=== PATIENT | female | born 1970 | race Caucasian/White ===

== ENCOUNTER → 2017-09-19 | Outpatient (CLI) | payer OTHER ==
[~2017-09-19] MED LIST: GADOBENATE DIMEGLUMINE 1 ML IV ONE
--- NOTE | 2017-09-19 20:01 | Diagnostic Imaging Report ---
PROCEDURE: MRI ABDOMEN MRCP WITH AND WITHOUT CONTRAST TECHNIQUE: Axial T1 in and out of phase, axial T2, fat-sat, coronal, T2 with and without fat-sat, axial DWI, and ADC MR images of the abdomen were performed before the intravenous administration of 20 cc of gadolinium. Axial T1, GRE dynamic images in precontrast, arterial, venous and delayed phases were performed, as well as delayed axial postcontrast ASSETT. Subtraction images were performed. Heavily T2-weighted MRCP images were also obtained, including thick and thin slab MRCP ASSETT, 3-D breath-hold FRFSE, and 3-D reconstructions. COMPARISON: None. INDICATIONS: Abdominal pain, acute pancreatitis. FINDINGS: Exam limited by breathing motion artifact. The LOWER THORAX: Lung bases are grossly clear. LIVER: Normal hepatic size and contour. Mild signal dropout on out of phase images, consistent with mild steatosis. No focal enhancing hepatic lesions. BILIARY: No intrahepatic biliary ductal dilation. The common bile duct is in the upper limit of normal, measuring 6-7 mm at the scott hepatis. A fluid level is noted in the common bile duct at the scott hepatis below the bifurcation (for example series 13, image 22 and series 5, image 16), which likely represents pneumobilia. No intraluminal filling defects or strictures. Gallbladder is unremarkable without stones, sludge, wall thickening, or pericholecystic fluid. PANCREAS: Pancreatic contour is indistinct. Portions of the pancreatic body and tail show no enhancement on postcontrast images (for example series 9, image 122), with surrounding increased T2 hyperintensity, likely representing fluid. The visualized portions of the pancreatic duct in the head, neck, and proximal body show no dilation. SPLEEN: Mild splenomegaly, measuring 14.9 cm in length. ADRENALS: No nodules. KIDNEYS: No hydronephrosis or mass in the imaged portion of the kidneys. GI TRACT: Visualized bowel shows no dilation or obstruction. PERITONEUM / RETROPERITONEUM: No ascites. LYMPH NODES: No upper abdominal lymphadenopathy. VESSELS: The celiac trunk, superior and inferior mesenteric, and bilateral renal arteries are patent. Portal and superior mesenteric veins are patent. The splenic vein is not clearly visualized in its entirety. BONES AND SOFT TISSUES: No abnormal bone marrow signal. IMPRESSION: 1. No intrahepatic biliary ductal dilation. Common bile duct is at the upper limit of normal. No MR evidence of choledocholithiasis or cholelithiasis. Likely mild pneumobilia 2. Findings highly suggestive of necrotizing pancreatitis. The splenic vein is not clearly visualized in its entirety and there is mild splenomegaly, which may be secondary to thrombosed splenic vein. Recommend CT abdomen for further evaluation. 3. Mild hepatic steatosis. Jose A Anglin M.D. Dictated by: Jos eA Anglin M.D. on 09/19/2017 at 20:03 Electronically approved by: Jose A Anglin M.D. on 09/19/2017 at 20:03
== END ==
LOC: MRI 09:43
PROVIDERS: ATTEND Internal Medicine Gastroenterology
DX: R10.9 Unspecified abdominal pain (principal); K86.89 Other specified diseases of pancreas; K76.0 Fatty (change of) liver, not elsewhere classified; R16.1 Splenomegaly, not elsewhere classified
CPT/HCPCS: 74183

== ENCOUNTER 2018-06-18 14:45 | Observation (INO) | payer OTHER ==
[~2018-06-18] VITALS: Ht 162.6 cm; Wt 91.3 kg
--- OUTSIDE RECORDS SUMMARY | 2018-06-18 14:48 | XMS REPORT ---
Author Author [facility] Address Unknown Phone Unavailable Care Team Providers Care User Interface Engineer Name Role Phone JUVENTINO VELAZQUEZ Unavailable Unavailable Problems This patient has no known problems. Allergies, Adverse Reactions, Alerts This patient has no known allergies or adverse reactions. Medications This patient has no known medications. Results Test Description Test Time Test Comments Text Results Atomic Results Result Comments MRI MRCP [facility] 2017-09-19 20:05:00 [place] [address] Patient Name: MARY DAWSON MR #: [id number] : 1970 Age/Sex: 47/F Req #: [id number] Adm Physician: Ordered by: JUVENTINO VELAZQUEZ MD Report #: [id number] Location: MRI Room/Bed: Procedure: [id number] MRI/MRI MRCP [facility] Exam Date: Exam Time: REPORT STATUS: Signed PROCEDURE: MRI ABDOMEN MRCP WITH AND WITHOUT CONTRAST TECHNIQUE: Axial T1 in and out of phase, axial T2, fat-sat, coronal, T2 with and without fat-sat, axial DWI, and ADC MR images of the abdomen were performed before the intravenous administration of 20 cc of gadolinium. Axial T1, GRE dynamic images in precontrast, arterial, venous and delayed phases were performed, as well as delayed axial postcontrast ASSETT. Subtraction images were performed. Heavily T2-weighted MRCP images were also obtained, including thick and thin slab MRCP ASSETT, 3-D breath-hold FRFSE, and 3-D reconstructions. COMPARISON: None. INDICATIONS: Abdominal pain, acute pancreatitis. FINDINGS: Exam limited by breathing motion artifact. The LOWER THORAX: Lung bases are grossly clear. LIVER: Normal hepatic size and contour. Mild signal dropout on out of phase images, consistent with mild steatosis. No focal enhancing hepatic lesions. BILIARY: No intrahepatic biliary ductal dilation. The common bile duct is in the upper limit of normal, measuring 6-7 mm at the scott hepatis. A fluid level is noted in the common bile duct at the scott hepatis below the bifurcation (for example series 13, image 22 and series 5, image 16), which likely represents pneumobilia. No intraluminal filling defects or strictures. Gallbladder is unremarkable without stones, sludge, wall thickening, or pericholecystic fluid. PANCREAS: Pancreatic contour is indistinct. Portions of the pancreatic body and tail show no enhancement on postcontrast images (for example series 9, image 122), with surrounding increased T2 hyperintensity, likely representing fluid. The visualized portions of the pancreatic duct in the head, neck, and proximal body show no dilation. SPLEEN: Mild splenomegaly, measuring 14.9 cm in length. ADRENALS: No nodules. KIDNEYS: No hydronephrosis or mass in the imaged portion of the kidneys. GI TRACT: Visualized bowel shows no dilation or obstruction. PERITONEUM / RETROPERITONEUM: No ascites. LYMPH NODES: No upper abdominal lymphadenopathy. VESSELS: The celiac trunk, superior and inferior mesenteric, and bilateral renal arteries are patent. Portal and superior mesenteric veins are patent. The splenic vein is not clearly visualized in its entirety. BONES AND SOFT TISSUES: No abnormal bone marrow signal. IMPRESSION: 1. No intrahepatic biliary ductal dilation. Common bile duct is at the upper limit of normal. No MR evidence of choledocholithiasis or cholelithiasis. Likely mild pneumobilia 2. Findings highly suggestive of necrotizing pancreatitis. The splenic vein is not clearly visualized in its entirety and there is mild splenomegaly, which may be secondary to thrombosed splenic vein. Recommend CT abdomen for further evaluation. 3. Mild hepatic steatosis. Jb Anglin M.D. Dictated by: Jb Anglin M.D. on 09/19/2017 at 20:03 Electronically approved by: Jb Anglin M.D. on 09/19/2017 at 20:03 Dictated By: JB ANGLIN MD 04 Transcribed By: LISE on 09/19/172004 COPY TO: JUVENTINO VELAZQUEZ MD
[2018-06-18 15:46] LABS: BASOPHILS % 0.4 % (0.0-1.0); EOSINOPHILS # (AUTO) 0.2 (0.0-0.4); EOSINOPHILS % 3.4 % (0.0-6.0); HEMATOCRIT 39.1 % (34.2-44.1); HEMOGLOBIN 12.6 g/dL (12.0-16.0); LYMPHOCYTES # (AUTO) 1.8 (1.0-3.2); LYMPHOCYTES % 30.9 % (18.0-39.1); MEAN CORPUSCULAR HEMOGLOBIN 29.2 pg (28-32); MEAN CORPUSCULAR HGB CONC 32.2 g/dL (31-35); MEAN CORPUSCULAR VOLUME 90.7 fL (81-99); MONOCYTES # (AUTO) 0.5 (0.2-0.8); MONOCYTES % 9.2 % (4.4-11.3); NEUTROPHILS # (AUTO) 3.2 (2.1-6.9); NEUTROPHILS % 55.7 % (38.7-80.0); PLATELET COUNT 213 x10e3/uL (140-360); RED BLOOD COUNT 4.31 x10e6/uL (3.6-5.1); RED CELL DISTRIBUTION WIDTH 13.1 % (11.7-14.4)
[2018-06-18 15:53] LABS: PROTHROMBIN TIME 13.7 seconds (11.9-14.5)
[2018-06-18 15:54] LABS: PARTIAL THROMBOPLASTIN TIME 29.8 seconds (23.8-35.5)
[2018-06-18 16:00] LABS: ALANINE AMINOTRANSFERASE 13 IU/L (0-55); ALBUMIN 3.9 g/dL (3.5-5.0); ALKALINE PHOSPHATASE 78 IU/L (40-150); ANION GAP 10.2 mmol/L (8-16); BLOOD UREA NITROGEN 13 mg/dL (7-26); BUN/CREATININE RATIO 17 (6-25); CALCIUM 9.5 mg/dL (8.4-10.2); CARBON DIOXIDE 26 mmol/L (22-29); CHLORIDE 105 mmol/L (98-107); CREATININE, SERUM 0.76 mg/dL (0.57-1.11); EST GLOMERULAR FILTRATION RATE > 60 ML/MIN (60-); GLUCOSE 103 mg/dL (74-118); POTASSIUM 4.2 mmol/L (3.5-5.1); SODIUM 137 mmol/L (136-145)
--- NOTE | 2018-06-18 16:01 | Diagnostic Imaging Report ---
Examination: CT head without contrast Clinical Indication: Left sided numbness; weakness. Technique: Transaxial noncontrast images from the skull base through the vertex were obtained. Sagittal and coronal reformatted images were done. Dose modulation, iterative reconstruction, and/or weight based adjustment of the mA/kV was utilized to reduce the radiation dose to as low as reasonably achievable. Comparison: None. Findings: Scalp: No abnormalities. Bones: Intact. No fractures. No blastic or lytic lesions. Brain sulci: Appropriate for patient's age. Ventricles: Normal in size and configuration. No hydrocephalus. Extra-axial space: No abnormalities. Parenchyma: No abnormal densities. No masses, hemorrhage, or acute or chronic cortical based vascular insults. Suprasellar region: No abnormalities. Craniocervical junction: The foramen magnum is patent. No Chiari one malformation. Impression: No intracranial abnormality. Signed by: Dr. Morelia Petty M.D. on 06/18/2018 3:57 PM
[2018-06-18] MEDS ORDERED: CARVEDILOL25 MG PO (23:31)
[2018-06-18] MEDS ORDERED: ZOLPIDEM TARTRA10 MG PO (23:31)
[2018-06-18] MEDS ORDERED: ALPRAZOLAM0.5 MG PO (23:31)
[2018-06-18] MEDS ORDERED: HYDROCODON-ACE1 EAC9 PO (23:31)
[2018-06-18] MEDS ORDERED: LISINOPRIL20 MG PO (23:31)
[2018-06-19] VITALS (10 sets, daily range): BP systolic 101–118; BP diastolic 47–66
--- NOTE | 2018-06-19 02:10 | NUR ---
pt received from er via stretcher. no ss of distress noted upon admit. vs bp 101/49, p 64, temp 96.8, resp 18, o2 on ra 97%. x2 max assist to bed pt made comfortable and oriented to rm. pt co pain to lower back. discussed pain mngt poc. verbalized understanding. call kent within reach. spoke to radiology at time, tech made aware of left ac 20g. stated will come pick pt up.
[2018-06-19] MEDS ORDERED: IOPAMIDOL 370 MG/ML 200 ML INFUS..BTL INJ ONE (02:29)
[2018-06-19] MEDS ORDERED: SODIUM CHLORIDE 0.9% 100 ML 100 ML ONE (02:29)
--- NOTE | 2018-06-19 02:30 | NUR ---
pt off unit at time to radiology. no distress noted upon transfer.
--- NOTE | 2018-06-19 02:50 | NUR ---
pt back to unit. pt made comfortable at time. hx obtained at time. call kent within reach.
--- NOTE | 2018-06-19 03:27 | Diagnostic Imaging Report ---
History:Left numbness and weakness, Comparison studies: None Technique: Axial images were obtained from the thoracic inlet. Coronal and sagittal images reconstructed from the axial data. Dose modulation, iterative reconstruction, and/or weight based adjustment of the mA/kV was utilized to reduce the radiation dose to as low as reasonably achievable. Intravenous contrast: 100 cc of Omnipaque 300. Findings: Aortic arch and major vessels: Patent. No abnormalities. Common carotid arteries: Patent. No abnormalities. Carotid bulbs, Non-stenosing punctate atherosclerotic calcification on the right. Otherwise, no abnormalities Internal carotid arteries: Patent. No abnormalities. Vertebral arteries: Patent. No abnormalities. Basilar artery: Patent. No abnormalities. Posterior cerebral arteries: Patent. No abnormalities. Anatomical variants: Acom: Not visualized . Pcoms: Nonvisualized. Vertebral arteries: Left slightly dominant. IMPRESSION: 1. Non-stenosing punctate atherosclerotic calcified plaque at the right carotid bulb. 2. Otherwise, no cervical or intracranial vascular abnormalities. Signed by: Dr. Rafael Juárez M.D. on 06/19/2018 3:23 AM
--- NOTE | 2018-06-19 03:28 | NUR ---
spoke to dr harvey in regards to pain mngt. new orders received.
[2018-06-19] MEDS: HYDROCODONE/APAP 10MG-325MG TAB PO PRN ×5 (03:53→23:54)
--- NOTE | 2018-06-19 04:16 | NUR ---
pt sneezing at time. pt incontinent of urine. unable to obtain ua sample. pt cleaned and diaper applied. call kent within reach.
--- NOTE | 2018-06-19 06:40 | NUR ---
spoke to dr padilla at time regarding new consult. no new orders at time. will notify oncoming nurse.
--- NOTE | 2018-06-19 07:25 | NUR ---
Received patient and walking rounds complete. Patient resting at this time, no signs of distress. Call light in reach, side rails up, wheels locked, bed in lowest position. Will continue to monitor.
[2018-06-19] MEDS: CARVEDILOL 12.5 MG TAB PO SCH ×2 (08:51→17:27)
[2018-06-19] MEDS: LISINOPRIL 20 MG TAB PO SCH ×2 (08:51→17:28)
[2018-06-19] MEDS ORDERED: NON-FORMULARY MEDICATION (Carvedilol 25 MG) PO SCH (09:00)
[2018-06-19] MEDS ORDERED: LISINOPRIL 20 MG TAB PO SCH (09:00)
[2018-06-19] MEDS ORDERED: HYDROCODONE/APAP 10MG-325MG TAB PO SCH (09:00)
[2018-06-19] MEDS: ALPRAZOLAM 0.5 MG TAB PO SCH ×3 (09:01→21:14)
[2018-06-19] MEDS ORDERED: LORATADINE 10 MG TAB PO PRN (09:45)
[2018-06-19] MEDS ORDERED: LORAZEPAM INJ 2 MG/ML VIAL IV ONE (11:45)
--- NOTE | 2018-06-19 12:02 | NUR ---
Patient left for MRI at this time via bed.
--- NOTE | 2018-06-19 12:58 | NUR ---
Patient back from MRI at this time. Bed in lowest position, wheels locked, side rails up x2, call light in reach. Will continue to monitor.
--- NOTE | 2018-06-19 14:04 | Diagnostic Imaging Report ---
Examination: MRI BRAIN WITHOUT CONTRAST History: Weakness. TIA. Comparison studies: Head CT performed earlier today. Technique: Sagittal T2; axial DWI, FLAIR, GRE or SWI, T1, Coronal FLAIR. Intravenous contrast: None Findings: Scalp: No abnormal signal. No masses. Bone marrow: Normal in signal intensity. Brain volume: Adequate for age. No volume loss. Ventricles: Normal in size and configuration. No hydrocephalus. Extra-axial spaces: No abnormalities. Parenchyma: There is an area of signal abnormality in the right middle cerebellar peduncle. There is no associated restricted diffusion or hemorrhage. This finding could be from prior vascular insult. No masses, hemorrhage, or acute vascular insults. Suprasellar and sellar region: No abnormalities. Craniocervical junction: No abnormalities. The foramen magnum is patent. No Chiari malformations. Vessels: Normal flow-voids in the arteries and sinuses. Additional findings:None. IMPRESSION: Presumed prior vascular insults of the right middle cerebellar peduncle. Alternatively, this could represent demyelinating disease in the appropriate clinical context. No acute infarct. Signed by: Dr. Morelia Petty M.D. on 06/19/2018 2:01 PM
--- NOTE | 2018-06-19 19:10 | NUR ---
REPORT TAKEN FROM AM RN.WALKING ROUNDS DONE.
[2018-06-19] MEDS ORDERED: NON-FORMULARY MEDICATION (Zolpidem Tartrate 10 MG) PO SCH (21:00)
[2018-06-19] MEDS: ZOLPIDEM TARTRATE 10 MG TAB PO SCH (21:14)
--- NOTE | 2018-06-19 22:30 | NUR ---
ASSESSMENT DONE.NO RESP.DISTRESS.BACK PAIN VOICED09/07.MEDICATION GIVEN.AMBULATES WITH WALKER.BED LOCKED AND IN LOWEST POSITION.BED ALARM ON.PHONE AND CALL LIGHT WITHIN REACH.INSTRUCTED TO CALL FOR ASISTANCE NEEDED.
[2018-06-19 23:45] LABS: CLARITY,URINE CLEAR (CLEAR); COLOR,URINE YELLOW (YELLOW)
[2018-06-19 23:46] LABS: KETONES,URINE NEGATIVE (NEGATIVE); LEUKOCYTE ESTERASE ,URINE NEGATIVE (NEGATIVE); NITRITE,URINE NEGATIVE (NEGATIVE); PROTEIN,URINE DIPSTICK NEGATIVE (NEGATIVE)
[2018-06-19 23:47] LABS: PHENCYCLIDINE SCREEN,URINE NEGATIVE (NEGATIVE)
[2018-06-19 23:48] LABS: AMPHETAMINES SCREEN,URINE NEGATIVE (NEGATIVE); BENZODIAZEPINES SCREEN,URINE POSITIVE (NEGATIVE); BILIRUBIN,URINE NEGATIVE (NEGATIVE); URINE UROBILINOGEN 0.2 mg/dL (0.2 - 1)
[2018-06-19 23:52] LABS: BACTERIA,URINE PRESENT /HPF; EPITHELIAL CELLS,URINE MODERATE /LPF; RBC,URINE 0-5 /HPF (0-5); WBC,URINE (MAN) 0-5 /HPF (0-5)
[2018-06-20] VITALS (8 sets, daily range): BP systolic 117–132; BP diastolic 53–92
--- NOTE | 2018-06-20 00:16 | NUR ---
URINE SENT TO THE LAB.
--- NOTE | 2018-06-20 00:21 | NUR ---
ORDERED MRI SPINE CERVICAL STAT. SHE SAID THAT IT IS OK TO DO IN THE MORNING.PT IS AWARE OF THAT.
--- NOTE | 2018-06-20 03:31 | Consultation ---
DATE OF CONSULTATION: 06/19/2018 Neurology Consult Note HISTORY OF PRESENT ILLNESS: Ms. Panchal is a 47-year-old right-hand dominant woman with past medical history significant for hypertension and a reported prior stroke with residual dysarthria and left hemiparesis, admitted to the [facility] on June 19, 2018, with worsening left hemiparesis. At approximately 1300 hours on June 18, 2018, the patient awoke from sleep to use the restroom. However, Ms. Panchal reports falling to the ground as soon as she attempted to step from the bed. Ms. Panchal cannot say why she fell to the ground. She does not report a new or worsening visual field cut or other disturbance, aphasia, facial weakness, hemiparesis, hemihypesthesia, or dizziness. She does report mild dysarthria, poor balance and impairment of gait, and confusion. Ms. Panchal was brought to the emergency center at [facility] by her for further evaluation of her symptoms. Upon arrival in the emergency center, the patient was afebrile with a blood pressure of 119/62 mmHg and a pulse of 74 beats per minute. The patient's neurological examination was documented as being nonfocal. A CT of the brain without contrast was performed, while the patient was in the emergency center. This study did not reveal evidence of recent or remote large territorial ischemia or hemorrhage. Ms. Panchal was admitted to [facility] under observation status for further evaluation and treatment of her symptoms. As stated above, Ms. Panchal reports suffering a stroke in May of 2016. Residual deficits from that stroke include dysarthria, left facial droop, and mild left hemiparesis. At home, the patient is not taking anti-platelet or anticoagulant medication. Ms. Panchal reports her symptoms seem to improve after approximately 12 to 14 hours. However, she reports continued need for someone to help her move around her hospital room. REVIEW OF SYSTEMS: Dry cough, confusion, impairment of balance and gait, and chronic low back pain. Otherwise, a 12-point review of systems is negative. PAST MEDICAL HISTORY: Hypertension, anxiety, stroke in June 2016 with residual dysarthria, left facial droop, and left hemiparesis, pancreatitis, ulcerative colitis, and chronic low back pain. PAST SURGICAL HISTORY: Cholecystectomy, tendon transfer in the left hand, and partial hysterectomy. PAST HOSPITALIZATIONS: Surgeries/procedures as listed, childbirth, stroke, and pancreatitis. FAMILY MEDICAL HISTORY: Hypertension, diabetes mellitus, and coronary artery disease. SOCIAL HISTORY: Ms. Panchal is . 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 The patient does not report current or prior tobacco, alcohol, or recreational drug use. HOME MEDICATIONS: Alprazolam 0.5 mg by mouth three times daily, Coreg 25 mg by mouth twice daily, hydrocodone/acetaminophen 1 tablet by mouth every 4 hours as needed for pain, lisinopril 20 mg by mouth twice daily, and Ambien 10 mg by mouth at bedtime daily. HOSPITAL MEDICATIONS: Alprazolam, Coreg, hydrocodone/acetaminophen, lisinopril, loratadine, and Ambien. ALLERGIES: BACTRIM. NO KNOWN FOOD ALLERGIES. NO KNOWN ALLERGIES TO LATEX. MS. PANCHAL DOES REPORT AN ALLERGY TO THE ADHESIVE AND MEDICAL TAPE. NO KNOWN ALLERGIES TO IODINE OR OTHER CONTRAST MATERIALS. PHYSICAL EXAMINATION: VITAL SIGNS: Height 64 inches, weight 189 pounds, BMI 32.5 kg/m2, blood pressure 118/66 mmHg, pulse 63 beats per minute, respiratory rate 18 breaths per minute, and oxygen saturation 96% on room air. GENERAL: The patient is awake and alert, does not appear distressed. Obese. HEENT: Normocephalic and atraumatic. Pupils are equal, round, and reactive to light. Moist mucous membranes. NECK: Supple. No appreciable thyromegaly. No appreciable carotid bruits. CARDIOVASCULAR: S1, S2, regular rate and rhythm. A moderate grade systolic ejection murmur is auscultated. No rubs or gallops. RESPIRATORY: Clear to auscultation bilaterally. No wheezes, rhonchi, or rales. EXTREMITIES: The skin is warm and dry. No clubbing, cyanosis, or edema. The posterior tibial and dorsalis pedis pulses are 2+ and symmetric. SKIN: No rashes or lesions. NEUROLOGIC: Memory/Attention: The patient is awake and alert, oriented to person, place, time, and situation. Cranial Nerves: Cranial nerve I - not tested. Cranial nerves II, III, IV, and - pupils are equal and round, react briskly to light (from 6 mm to 3 mm). Extraocular movements intact. No nystagmus. Cranial nerve V - sensation to light touch and pinprick is intact in the bilateral V1 through V3 distributions. Strength in the temporalis and masseter muscles is within normal limits. Cranial nerve VII - the face is symmetric, as are all facial movements. Strength is within normal limits. Cranial nerve VIII - hearing is intact to finger rub bilaterally. Cranial nerves IX, X - the soft palate elevates equally and symmetrically. Cranial nerve XI - normal strength of the bilateral sternocleidomastoid and trapezius muscles. Cranial nerve XII - the tongue protrudes midline and moves symmetrically from nllo-tn-mbiz. Strength: Bulk is normal. Strength is 5/5 in the right deltoid, biceps, triceps, wrist flexors and extensors, finger flexors and extensors, intrinsic hand muscles, hip flexors, knee flexors and extensors, ankle dorsiflexion and plantarflexion, and intrinsic foot muscles. In the left arm, the flexors are 4+/5 and the extensors are 4/5. The left leg is 1/5. Positive Kaiser sign. Tone is normal. DTRs: Deep tendon reflexes are 2+ at the right triceps, biceps, brachioradialis, and patella. Deep tendon reflexes are 3+ at the left triceps, biceps, brachioradialis, and patella. Deep tendon reflexes are 1+ and symmetric at the Achilles. Plantar responses are flexor bilaterally. Sensation: Sensation is intact to light touch and pinprick in both arms and both legs. Cerebellar: Pndjtn-khba-hgbbfc and heel-quan movements are intact without dysmetria or other impairment on the right. There is dysmetria with nbyqsf-uire-ymowcj movements on the left. Heel-quan movements are impaired on the left, but this is within the bounds of paresis. Gait: Deferred. Speech: Spontaneous speech is mildly dysarthric without aphasia. Repetition is intact. Involuntary Movements: None. Pronator Drift: Positive in the left arm. LABORATORY DATA: A comprehensive metabolic panel is significant only for a mildly elevated globulin of 4.0. The CBC with differential and platelets is unremarkable. The coagulation profile is within normal limits. DIAGNOSTIC STUDIES: CT of the brain on 06/18/2018: On my review, there is no evidence of recent or remote large territorial ischemia, hemorrhage, mass, or mass effect. Cerebral volumes are appropriate for age. There are no findings suggestive of chronic small vessel ischemic disease. MRI of the brain without contrast on 06/19/2018: On my review, there is an area of abnormal signal in the right middle cerebellar peduncle without associated restricted diffusion or hemorrhage. This finding could be from a prior stroke. However, demyelinating or infectious lesions may cause similar appearance. Cerebral volumes are appropriate for age. There are no findings suggestive of chronic small vessel ischemic disease. CTA of the brain and neck on 06/19/2018: Other than a nonstenotic calcified atherosclerotic plaque at the right carotid bulb, there were no significant findings of the intracranial or extracranial vasculature. ASSESSMENT AND PLAN: Ms. Panchal is a 47-year-old right-hand dominant woman with past medical history significant for hypertension as well as a reported prior stroke with residual dysarthria, left facial droop, and left hemiparesis, admitted to [facility] on June 19, 2018, with worsening left hemiparesis. The patient's neurological examination is significant for left hemiparesis, with the leg being more affected than the arm, hyperreflexia over the left arm and left leg, ataxia of the left arm, and impairment of heel-quan maneuvers of the left leg. The patient's laboratory data and other diagnostic studies have been reviewed and are documented above. At the time of the MRI of the brain was completed, the patient's symptoms have been present for nearly 24 hours. However, there is no evidence of acute ischemia or hemorrhage on the magnetic resonance images. Given the patient's history of a reported prior stroke with residual left-sided deficits, I would say the patient's worsening left hemiparesis could represent recrudescence of prior deficits. However, there are no lesions on the MRI of the brain, which correspond to the patient's symptoms. At present, I am suspicious of the prior diagnosis of stroke in a patient with only well-controlled hypertension as a risk factor. The lesion seen on the MRI of the brain may not be ischemic. Demyelinating or infectious lesions may have a similar appearance. The patient does not report symptoms of infectious illness. There are no signs on her examination to suggest infectious illness. Therefore, demyelinating disorder (i.e. multiple sclerosis) seems to be a more likely cause for her symptoms. RECOMMENDATIONS: Are as follows: 1. A CT of the cervical spine with and without contrast will be ordered to evaluate for demyelinating lesions in the cervical spine. Given the distribution of the patient's symptoms and without a corresponding lesion in the brain, the cervical spine is the most likely location for pathology. 2. Defer treatment of the remaining medical comorbidities to the primary and other services following the patient. Thank you for this consultation. I will continue to follow the patient while she remains in the hospital. TIME SPENT: 50 minutes. Tanya Fitzpatrick MD CP/DEMAR /[id number] [email or web address]
[2018-06-20] MEDS: HYDROCODONE/APAP 10MG-325MG TAB PO PRN ×4 (05:19→20:00)
--- NOTE | 2018-06-20 07:01 | NUR ---
REPORT GIVEN TO THE ONCOMING RN.WALKING ROUNDS DONE.STABLE CONDITION.
[2018-06-20] MEDS: CARVEDILOL 12.5 MG TAB PO SCH ×2 (08:20→16:59)
[2018-06-20] MEDS: ALPRAZOLAM 0.5 MG TAB PO SCH ×3 (09:05→20:32)
[2018-06-20] MEDS ORDERED: LORAZEPAM INJ 2 MG/ML VIAL IV ONE (09:15)
[2018-06-20] MEDS ORDERED: GADOBENATE DIMEGLUMINE 1 ML IV ONE (09:25)
--- NOTE | 2018-06-20 10:32 | Diagnostic Imaging Report ---
Examination: MRI SPINE CERVICAL WITHOUT AND WITH CONTRAST History: Weakness. Multiple sclerosis. Comparison studies: None Technique: Sagittal T1, T2 and IR, axial T2 and axial gradient echo; postcontrast axial and sagittal T1 fat-saturated. Intravenous contrast: 17 mL MultiHance. Findings: Alignment: Normal lordosis. No scoliosis. Cervicomedullary junction: No abnormalities. Patent foramen magnum. Soft tissues: No T2 hyperintense inflammatory changes. Spinal cord: Normal in size from the foramen magnum through T1. There is an area of signal abnormality in the left lateral cord from C2 through C3. Evaluation of the remaining cord is limited due to significant motion artifact. Please consider repeat scan with sedation Vertebrae: No fractures, infection or neoplasm. Enhancement: No definite area of abnormal enhancement. However, evaluation is limited due to motion artifact. Degenerative changes: C1-C2 through C7-T1: No canal or foraminal stenosis. IMPRESSION: Significant motion artifact limiting the study. Please consider repeat scanning with conscious sedation. Possible lesions in the left lateral cord from C2 through C3. Additional lesions and enhancing lesions cannot be evaluated due to motion artifact. Signed by: Dr. Morelia Petty M.D. on 06/20/2018 10:29 AM
[2018-06-20] MEDS ORDERED: METHYLPREDNISOLONE SOD SUCC 1,000 MG/8 ML VIAL IV SCH (11:30)
--- NOTE | 2018-06-20 12:00 | NUR ---
MD SALDANA HAS ROUNDED WITH PT IS HAS EXPLAINED RESULTS OF MRI . HAS EXPLAINED TO PT HER WEAKNESS IS DUE TO MS AND TREATMENT INCLUDES IV STEROIDS AT THIS TIME. PT VERBALIZES UNDERSTANDING . STATES SHE WILL COME TOMORROW TO BETTER EXPLAIN HER NEW DIAGNOSIS
[2018-06-20] MEDS: LISINOPRIL 20 MG TAB PO SCH ×2 (12:10→16:59)
--- NOTE | 2018-06-20 12:31 | NUR ---
PT EDUCATION HANDOUT GIVEN TO PT AT THIS TIME .
[2018-06-20] MEDS: METHYLPREDNISOLONE SOD SUCC 1,000 MG in SODIUM CHLORIDE 0.9% 250ML 250 ML IV SCH (12:57)
--- NOTE | 2018-06-20 13:16 | NUR ---
pt has refused 3x today due to receiving bad news, pt asked to be given some time then check on her to participate but did not feel ready... Addendum: 06/20/18 at 1317 by Robert Zamora PTA Amended: Links added.
--- NOTE | 2018-06-20 15:12 | Progress Note ---
DATE: Internal Medicine Progress Note SUBJECTIVE: The patient is complaining of left lower quadrant abdominal pain. She has esophageal reflux disease. PHYSICAL EXAMINATION: VITAL SIGNS: Blood pressure 117/55, temperature 96.2, heart rate 65 per minute, respiratory rate 18 per minute, and oxygen saturation 97%. HEART: Showed regular rhythm. Normal S1 and S2 sounds. LUNGS: Clear bilaterally. ABDOMEN: Soft. EXTREMITIES: Show no evidence of cyanosis, edema, or trauma. NEUROLOGIC: Alert and oriented x3. She has dysarthria. Cranial nerves II through XII intact. Left hemiparesis, more on the arm than the leg. FINAL IMPRESSION: 1. Multiple sclerosis, new episode with left hemiparesis. 2. Hypertension. 3. Chronic pain syndrome. 4. Cocaine abuse due to the fact that she had cocaine in the system on the drug screening. PLAN OF TREATMENT: Continue Solu-Medrol, which was started by Dr. Fitzpatrick, neurologist, 1000 mg IV daily for 3 days. Continue physical and occupational therapy. Continue alprazolam 0.5 mg 3 times a day, [place] 1 tablet q.4 hours as needed, lisinopril 20 mg twice a day, carvedilol 25 mg twice a day, Ambien 10 mg at night p.r.n. for sleep, Claritin 10 mg daily as needed. MD MARY ANN Schofield/DEMAR /[id number]
--- NOTE | 2018-06-20 19:00 | NUR ---
REPORT TAKEN FROM AM RN.WALKING ROUNDS DONE.AAOX3.SITTING QUIETLY IN THE BED.BED LOCKED AND IN LOWEST POSITION.PHONE AND CALL LIGHT WITHIN REACH.INSTRUCTED TO CALL FOR ASSISTANCE NEEDED.
--- NOTE | 2018-06-20 20:30 | NUR ---
PT TOOK SHOWER.BACK PAIN VOICED 09/07.MEDICATION GIVEN.
[2018-06-20] MEDS: ZOLPIDEM TARTRATE 10 MG TAB PO SCH (20:32)
[2018-06-21] VITALS (8 sets, daily range): BP systolic 131–157; BP diastolic 60–78
[2018-06-21] MEDS: HYDROCODONE/APAP 10MG-325MG TAB PO PRN ×6 (00:07→22:50)
--- NOTE | 2018-06-21 06:50 | NUR ---
REPORT GIVEN TO THE ONCOMING RN WALKING ROUNDS DONE.STABLE CONDITION.
[2018-06-21] MEDS: METHYLPREDNISOLONE SOD SUCC 1,000 MG in SODIUM CHLORIDE 0.9% 250ML 250 ML IV SCH (09:23)
[2018-06-21] MEDS: CARVEDILOL 12.5 MG TAB PO SCH ×2 (09:23→17:28)
[2018-06-21] MEDS: ALPRAZOLAM 0.5 MG TAB PO SCH ×3 (09:24→21:12)
[2018-06-21] MEDS: LISINOPRIL 20 MG TAB PO SCH ×2 (09:24→17:28)
[2018-06-21] MEDS: SUMATRIPTAN SUCCINATE 25 MG TAB PO PRN ×2 (12:24→18:15)
--- NOTE | 2018-06-21 12:37 | Progress Note ---
DATE: 06/21/2018 Internal Medicine Progress Note SUBJECTIVE: The patient is complaining of headache that according to the patient the dark room helps her relieve the headaches. OBJECTIVE: VITAL SIGNS: Blood pressure 139/77, temperature 36.0, heart rate 84 per minute, respiratory rate is 18 per minute, and oxygen saturation 93%. HEART: Regular rhythm. No murmur or added sound. LUNGS: Clear bilaterally. ABDOMEN: Soft. EXTREMITIES: No evidence of cyanosis, edema, or trauma. LABORATORY DATA: BMP; sodium 137, potassium 4.2, chloride 105, CO2 of 26, BUN 13, creatinine 0.76, glucose 103. CBC; white blood count 5.66, hemoglobin 12.6, hematocrit 39.1, and platelet count 215,000. PT 13.7, INR 1.00, and PTT 29.8. AST 13, ALT 13, total bilirubin 0.6, and alkaline phosphatase 78. FINAL IMPRESSION: 1. Possible multiple sclerosis with left hemiparesis. 2. Gastroesophageal reflux disease. 3. Hypertension. 4. Chronic pain syndrome. 5. Cocaine abuse. 6. Possible migraine headaches. PLAN OF TREATMENT: We are going to give her Imitrex 25 mg p.o. q.6 hours as needed for severe headache. Continue Solu-Medrol 100 mg IV daily for another three days, Xanax 0.5 mg three times a day, [place] 1 tablet q.4 hours as needed, lisinopril 20 mg twice a day, carvedilol 25 mg twice a day, Ambien 10 mg at bedtime, and Claritin 10 mg daily as needed. MD MARY ANN Schofield/DEMAR /[id number]
--- NOTE | 2018-06-21 14:10 | NUR ---
Visit made by the Spiritual Care Department Pastoral Visitor, Triston Mayo. PV provided pastoral presence, hospitality, and supportive listening. Pastoral Visitor informed pt/family of the scope of Vulnerability Assessment Analyst Services and availability. SAUL SAGASTUME [employer] Spiritual Care Department O: [phone] Pager: [phone] ([phone] number calling from)
[2018-06-21] MEDS ORDERED: DIATRIZOATE MEGL/DIATRIZOA SOD 30 ML BTL PO ONE (14:24)
--- NOTE | 2018-06-21 14:28 | NUR ---
SPOKE TO MD SEN REGARDING PT C/O OF ABD PAIN . PT STATES PAIN IS SIMILAR BEFORE WHEN SHE HAD A PANCREATITIS FLARE UP. MD HAS ORDERED LAB WORK AND CT OF ABD/PELVIS PT AWARE OF MD ORDERS , ASKED PT NOT TO EAT STARTING NOW UNTIL CT IS COMPLETE
--- NOTE | 2018-06-21 17:56 | Diagnostic Imaging Report ---
EXAMINATION: CT of the abdomen and pelvis without contrast. TECHNIQUE: Helical CT images of the abdomen and pelvis were performed from the lung bases to the lesser trochanters. No intravenous contrast was given.. Coronal and sagittal reformatted images were obtained.Dose modulation, iterative reconstruction, and/or weight based adjustment of the mA/kV was utilized to reduce the radiation dose to as low as reasonably achievable. COMPARISON: None. CLINICAL HISTORY:Abdominal pain DISCUSSION: ABSENCE OF INTRAVENOUS CONTRAST DECREASES SENSITIVITY FOR DETECTION OF FOCAL LESIONS AND VASCULAR PATHOLOGY. ABDOMEN/PELVIS: LOWER THORAX: Unremarkable. HEPATOBILIARY:No focal hepatic lesions. No biliary ductal dilation. Cholecystectomy. Pneumobilia. SPLEEN: No splenomegaly. PANCREAS: No focal masses or ductal dilatation. ADRENALS: No adrenal nodules. KIDNEYS/URETERS: No hydronephrosis, stones, or solid mass lesions. PELVIC ORGANS/BLADDER: The bladder is normal. PERITONEUM/RETROPERITONEUM: No free air or fluid. LYMPH NODES: No intra-abdominal,retroperitoneal, pelvic or inguinal lymphadenopathy. VESSELS: The celiac trunk,superior and inferior mesenteric and bilateral renal arteries are patent The portal, superior mesenteric and splenic veins are patent. GI TRACT: No distention or wall thickening. Appendix normal. BONES AND SOFT TISSUES: No bony destructive lesions. No soft tissue abnormalities. IMPRESSION: No acute noncontrast CT finding. Signed by: Dr. Ronn Davis M.D. on 06/21/2018 5:53 PM
--- NOTE | 2018-06-21 19:20 | NUR ---
REPORT TAKEN FROM AM RN.WALKING ROUNDS DONE.AAOX3..NO RESP.DISTRESS.BED LOCKED AND IN LOWEST POSITION.PHONE AND CALL LIGHT WITHIN REACH.INSTRUCTED TO CALL FOR ASSISTANCE NEEDED.
[2018-06-21] MEDS: ZOLPIDEM TARTRATE 10 MG TAB PO SCH (21:12)
[2018-06-22] VITALS (11 sets, daily range): BP systolic 134–169; BP diastolic 61–91
--- NOTE | 2018-06-22 00:20 | NUR ---
PT IS ON NPO FOR MRI UNDER ANAESTHESIA.
--- NOTE | 2018-06-22 07:00 | NUR ---
Report given to the oncoming rn.walking rounds done.stable condition.
[2018-06-22] MEDS: ALPRAZOLAM 0.5 MG TAB PO SCH ×3 (09:00→20:37)
[2018-06-22] MEDS: METHYLPREDNISOLONE SOD SUCC 1,000 MG in SODIUM CHLORIDE 0.9% 250ML 250 ML IV SCH (09:07)
[2018-06-22] MEDS: CARVEDILOL 12.5 MG TAB PO SCH ×2 (09:08→18:45)
[2018-06-22] MEDS: LISINOPRIL 20 MG TAB PO SCH ×2 (09:09→18:45)
[2018-06-22] MEDS: SUMATRIPTAN SUCCINATE 25 MG TAB PO PRN ×2 (09:19→18:40)
--- NOTE | 2018-06-22 10:15 | NUR ---
ASSESSMENT: Spiritual distress Pt anxious concerning new diagnosis. Pt's at bedside. Pt's states his said, "I feel like I've been given a sentence" following notification of diagnosis. Pt's also having his own health concerns. Intervention: Provided unhurried empathic listening. Facilitated illness review. Provided prayer. Outcome: Pt & expressed appreciation for visit. Will follow as able. SAUL Joylain Spiritual Care Department O: [phone] Pager: [phone] ([phone] number calling from)
--- NOTE | 2018-06-22 10:50 | NUR ---
down to mri left in stable condition
[2018-06-22] MEDS ORDERED: GADOBENATE DIMEGLUMINE 1 ML IV ONE (11:38)
[2018-06-22] MEDS ORDERED: SODIUM CHLORIDE 0.9% 500ML 0 ML ONE (11:50)
[2018-06-22] MEDS ORDERED: SODIUM CHLORIDE 0.9% 500ML 500 ML ONE (11:50)
--- NOTE | 2018-06-22 14:15 | NUR ---
1415 received pt via bed from MRI suite in escort of Anesthesia Received report pt ocmpleted MRI brain with mac sedation Prophafol and 4 versed. Left ac iv infusing at KVO 400cc in bed. NO signs infiltration. Pt appears back to baseline with co left side weakness and ,WILD and back pain. Abdomen soft and non tender denies necessity to defecate or urinate. Anesthesia ok to transfer back to floor care when awake and vs stable. side rails up and call light at bedside. 1500 Report phoned to Lucía BREWSTER stable vs and orientation ok .Will be transferring back to floor care stable. No gross signs of pain,pallor,pressor or dysrhythmia ds/rn
--- NOTE | 2018-06-22 15:00 | NUR ---
1500 Transfer per bed to room 107 Ricky Castrejon report. Pt back to baseline orientation. No gross signs of pallor,pressure or pain of unusual normality. Left arm Ac with 400cc left 0.9 NS left in bag. Site w/o s/s infiltration.Left pt in room with call light available and family in room. Aware of importance to call for assistance to get up. Denies nausea or necessity to defecate or urinate. farhat/rn
[2018-06-22] MEDS: HYDROCODONE/APAP 10MG-325MG TAB PO PRN ×2 (15:25→19:55)
--- NOTE | 2018-06-22 15:58 | Diagnostic Imaging Report ---
EXAMINATION: MRI of the cervical and thoracic spine without and with contrast. HISTORY: Multiple sclerosis, weakness COMPARISON: Unenhanced cervical spine MRI 06/20/2018 TECHNIQUE: Pre-contrast sagittal T1, T2, STIR; axial T1, T2.. Post contrast axial and sagittal T1. Intravenous Contrast: 17 mL of MultiHance. Image quality: Study mildly limited by motion, particularly the axial postcontrast images of the thoracic spine. FINDINGS: Spinal Cord: Spinal cord size: Normal T1 lesions: None Enhancing lesions: None T2 lesions: Unchanged previously seen T2 lesion on the left lateral cord extending from the base of the dens down to the superior endplate of C3, questionable right lateral cord lesion at C2-C3. No discrete thoracic spinal cord T2 lesions, however motion on scoliosis film limits evaluation. Others: Vertebrae: Normal alignment, height, signal intensity. Discs: Mild spondylosis, uncovertebral and facet processes results in mild foraminal narrowing bilaterally at C3-C4, C4-C5, moderate on the left at C5-C6. Mild canal narrowing at C5-C6 and C6-C7. No significant canal or foraminal stenosis in the thoracic spine. Craniocervical junction: Normal. Alignment: Mild thoracic S-shaped scoliosis with dominant left upper levoscoliosis. IMPRESSION: 1. Ill-defined upper cervical spinal cord demyelinating T2 lesions as detailed above. No discrete thoracic spinal cord MS lesions. 2. No spinal cord atrophy. Signed by: Dr. Becka Swain M.D. on 06/22/2018 3:54 PM
--- NOTE | 2018-06-22 16:02 | Diagnostic Imaging Report ---
EXAMINATION: MRI of the lumbar spine without contrast HISTORY: Weakness, multiple sclerosis COMPARISON: Abdomen CT of 06/21/2018 TECHNIQUE: Sagittal T1, T2, STIR; axial T2 and proton density. FINDINGS: It is assumed that there are 5 lumbar vertebrae. Curvature/Alignment: Normal lordosis. Vertebrae: No evidence of recent fracture, infection, or neoplasm. Distal thoracic spinal cord: Unremarkable, no delaminating lesions. Conus: Normal, terminating at T12-L1. No abnormal enhancement Cauda equina: Unremarkable. Lower thoracic: Unremarkable. Paraspinal soft tissues: Unremarkable. Degenerative changes: L1-L2: Unremarkable. L2-L3: Unremarkable. L3-L4: Mild asymmetric to the left disc bulge without spinal canal or foraminal stenosis. L4-L5: Decreased disc height and T2 signal intensity, mild symmetric disc bulge, small posterior annular fissure, bilateral facet arthrosis. No canal or foraminal stenosis. L5-S1: Decreased disc height and T2 signal intensity, asymmetric to the left with tiny left foraminal disc protrusion and mild facet arthrosis. Mild left foraminal narrowing. IMPRESSION: 1. Normal distal thoracic spinal cord, conus medullaris and cauda equina nerve roots. 2. Mild degenerative changes from L3-L4 through L5-S1 without significant stenoses, no evidence of nerve root compression. Signed by: Dr. Becka Swain M.D. on 06/22/2018 3:59 PM
--- NOTE | 2018-06-22 16:07 | Diagnostic Imaging Report ---
EXAMINATION: MRI of the brain without and with contrast . HISTORY: Multiple sclerosis, weakness. COMPARISON: Unenhanced brain MRI of 06/19/2018 TECHNIQUE: Precontrast axial DWI, T1, T2, T2 FLAIR, Volumetric T2 FLAIR FS reconstructed in the axial, sagittal and coronal planes. Postcontrast volumetric T1 FS obtained in the coronal plane reconstructed in the axial and sagittal planes Intravenous contrast: 17 mL of MultiHance Image quality: Motion artifact mildly limiting the evaluation. FINDINGS: T2 lesions: Unchanged cluster of T2/FLAIR hyperintense foci along the anterior margin of the right middle cerebellar pedicle/right anterior ortega, a smaller right ventral medullary lesion, which is slightly more conspicuous. Again density lesions may correspond to small chronic lacunar infarcts versus demyelinating lesions. Partially visualized demyelinating lesion in the left lateral upper thoracic spinal cord, better visualized on cervical spine MRI performed on the same date. T1 lesions: None Enhancing lesions: None Corpus callosum volume: Normal. Brain volume: Normal for age. Other: No mass, hydrocephalus, hemorrhage, acute or chronic infarcts IMPRESSION: 1. Unchanged cluster of T2 hyperintense foci in the right ortega/middle cerebellar peduncle and right anterior mid to lower, which again may correspond to small chronic lacunar infarct versus demyelinating lesions. No enhancing MS lesions. 2. Partially visualized left upper cervical spinal cord demyelinating lesion. Please see dictation of cervical spine MRI performed the same day for further detail 3. No disproportionate brain atrophy. Signed by: Dr. Becka Swain M.D. on 06/22/2018 4:03 PM
[2018-06-22] MEDS ORDERED: MIDAZOLAM HCL 2 MG/2 ML VIAL ONE (19:28)
[2018-06-22] MEDS ORDERED: PROPOFOL IV EMULSION 10 MG/ML 50 ML VIAL ONE (19:49)
[2018-06-22] MEDS ORDERED: LIDOCAINE HCL 2% LOCAL INJ 5 ML SDV VIAL INJ ONE (19:49)
[2018-06-22] MEDS: ZOLPIDEM TARTRATE 10 MG TAB PO SCH (20:37)
[2018-06-23] VITALS: BP 159/71
[2018-06-23] MEDS: HYDROCODONE/APAP 10MG-325MG TAB PO PRN ×3 (00:59→10:00)
[2018-06-23 04:00] VITALS: BP 153/69
[2018-06-23 08:21] VITALS: BP 198/88
[2018-06-23] MEDS: LISINOPRIL 20 MG TAB PO SCH (10:00)
[2018-06-23] MEDS: ALPRAZOLAM 0.5 MG TAB PO SCH (10:00)
[2018-06-23] MEDS: SUMATRIPTAN SUCCINATE 25 MG TAB PO PRN (10:00)
[2018-06-23] MEDS: CARVEDILOL 12.5 MG TAB PO SCH (10:00)
[2018-06-23 10:20] VITALS: BP 198/88
--- NOTE | 2018-06-23 11:02 | NUR ---
MD Tigre VELAZQUEZ INTO SEE PT, DISCUSSED DISCHARGE INSTRUCTIONS, SPOKE WITH MD SALDANA , OKAYED FOR NO NEW PRESCRIPTIONS EXCEPT IMITREX, MD Tigre VELAZQUEZ MADE AWARE
[2018-06-23] MEDS ORDERED: IMITREX25 MG PO (11:29)
[2018-06-23 12:04] VITALS: BP 195/86
--- NOTE | 2018-06-23 13:30 | NUR ---
DISCHARGE INSTRUCTIONS REVIEWED, PT VERBALIZED UNDERSTANDING, AWAITING RIDE
--- NOTE | 2018-06-23 14:24 | NUR ---
WHEELED OFF UNIT VIA WC, NO CHANGE IN CONDITION
--- NOTE | 2018-06-23 18:07 | NUR ---
Late Note: Met with patient earlier today. Discussed home health and she agreed and signed choice letter. Clinical faxed to [facility] [phone], office [phone]
== END 2018-06-23 13:45 | disposition home health service (06) ==
LOC: ER 14:45 → ERHOLD 06-19 00:40 → MED/SURG 06-19 02:15
DX: G35 Multiple sclerosis (principal); I10 Essential (primary) hypertension; G89.4 Chronic pain syndrome; F14.10 Cocaine abuse, uncomplicated; K21.9 Gastro-esophageal reflux disease without esophagitis; R51 Headache; I69.322 Dysarthria following cerebral infarction; I69.354 Hemiplegia and hemiparesis following cerebral infarction affecting left non-dominant side; F41.9 Anxiety disorder, unspecified; Z79.899 Other long term (current) drug therapy
CPT/HCPCS: 36415 ×2; 70450; 70496; 70498; 70551; 70553; 72156 ×2; 72157; 72158; 74176; 80053; 80307; 81001; 83690; 84484; 85025; 85610; 85730; 97116; 97139 ×4; 97161; 97530 ×2; 99284; A9577 ×2; G0378 ×5; J2001; J2060 ×2; J2250; J2704; J2930 ×2; J7040; J7050 ×2; Q9967